=== PATIENT | male | born 1965 | race Caucasian/White ===

== ENCOUNTER 2019-11-21 08:51 | Day surgery (SDC) | payer BC, SELFPAY ==
[2019-11-15 10:38] VITALS: BMI 26.4
--- NOTE | 2019-11-20 15:38 | HO.ANESPROP2 ---
Documented by User: Janelle Louis 11/20/19 15:40 HPI - Anesthesia Eval Consult details Narrative: 54yo M for Colonoscopy PMFSH Past Medical History Medical History BPH (benign prostatic hyperplasia) Hx of colonic polyps Surgical History Surgical History History of hand surgery Hx of colonoscopy Hx of lumbar discectomy Hx of right knee surgery Social History Social History Smoking Status: Never smoker Second Hand Smoke Exposure: No Use of substances other than those prescribed or required for medical reasons: No Advance Directives: No Advance Directives Information Provided: No Meds Allergies Allergy/AdvReac Type Severity Reaction Status Date / Time No Known Allergies Allergy Verified 11/15/19 10:34 Home Medications Medication Instructions Recorded Confirmed Type tamsulosin 0.4 mg PO BEDTIME 11/15/19 11/15/19 History Viagra 11/21/19 History Exam Exam Date and Time: November 20, 2019 1538 Height,Weight and Vital Signs: Height 6 ft Weight 88.451 kg Pertinent Lab Results Pertinent Lab Results: Laboratory Tests 09/01/19 09/01/19 07:18 07:18 WBC 6.1 Hgb 13.9 L Hct 42.5 Plt Count 233 Sodium 142 Potassium 4.1 Chloride 105 Bicarbonate 29 BUN 11 Creatinine 1.01 Assessment and Plan Assessment Anesthesia Assessment: Chart Reviewed Documented by User: Heike Beal 11/21/19 09:41 PMFSH Past Medical History Medical History BPH (benign prostatic hyperplasia) Hx of colonic polyps Surgical History Surgical History History of hand surgery Hx of colonoscopy Hx of lumbar discectomy Hx of right knee surgery Social History Social History Smoking Status: Never smoker Second Hand Smoke Exposure: No Use of substances other than those prescribed or required for medical reasons: No Advance Directives: No Advance Directives Information Provided: No Meds Allergies Allergy/AdvReac Type Severity Reaction Status Date / Time No Known Allergies Allergy Verified 11/15/19 10:34 Home Medications Medication Instructions Recorded Confirmed Type tamsulosin 0.4 mg PO BEDTIME 11/15/19 11/15/19 History Viagra 11/21/19 History Exam Height,Weight and Vital Signs: Vital Signs Temperature 98.7 F 11/21/19 09:18 Pulse Rate 60 11/21/19 09:18 Respiratory Rate 16 11/21/19 09:18 Blood Pressure 116/61 11/21/19 09:18 Pulse Oximetry 98 11/21/19 09:18 Temperature 98.7 F 11/21/19 09:18 Pulse Rate 60 11/21/19 09:18 Respiratory Rate 16 11/21/19 09:18 Blood Pressure 116/61 11/21/19 09:18 Pulse Oximetry 98 11/21/19 09:18 Airway Mallampati Class: I TM Dist: >3cm Neck ROM: Full Loose/Missing/Broken Teeth: No Heart: RRR Lungs: CTA Assessment and Plan Assessment Anesthesia Assessment: Anesthesia Plan Discussed and Consent Obtained Final Anesthetic Review NPO: Yes ASA Class: II Final Preanesthetic Review: Meds & Allergies Reviewed, Consent Obtained/Reviewed, Med/Surg/Anes Hx Reviewed and Anes Risks/Benef Reviewed Patient Risk: Low Procedure Risk: Low Anesthetic Plan Anesthetic Plan: MAC: Disposition: Standard PACU Documented by User: Nirali Wells 11/21/19 10:59 PMFSH Past Medical History Medical History BPH (benign prostatic hyperplasia) Hx of colonic polyps Surgical History Surgical History History of hand surgery Hx of colonoscopy Hx of lumbar discectomy Hx of right knee surgery Social History Social History Smoking Status: Never smoker Second Hand Smoke Exposure: No Use of substances other than those prescribed or required for medical reasons: No Advance Directives: No Advance Directives Information Provided: No Meds Allergies Allergy/AdvReac Type Severity Reaction Status Date / Time No Known Allergies Allergy Verified 11/15/19 10:34 Home Medications Medication Instructions Recorded Confirmed Type tamsulosin 0.4 mg PO BEDTIME 11/15/19 11/15/19 History Viagra 11/21/19 History Assessment and Plan Assessment Anesthesia Assessment: Anesthesia Plan Discussed, Consent Obtained and PAT Visit Final Anesthetic Review NPO: Yes ASA Class: II Final Preanesthetic Review: No Changes in Pt Med Stat, Meds & Allergies Reviewed, Consent Obtained/Reviewed and Med/Surg/Anes Hx Reviewed Patient Risk: Low Procedure Risk: Low Assessment/Block/Sedation in SS: Assess/Block/Sedation-SS Anesthetic Plan Anesthetic Plan: MAC: Disposition: Standard PACU
[2019-11-21 09:18] VITALS: BP 116/61; PULSE 60; RESP 16; TEMP 37.1; O2SAT 98
[2019-11-21] MEDS: Lactated Ringers 1,000 ML 100 ML IVCONT (09:28)
--- NOTE | 2019-11-21 10:53 | MHC.SHP ---
Pre-Procedural Eval Section A The patient is an INPATIENT: No The History & Physical has been completed within 30 days and I have reviewed it.: No Section B Chief Complaint: Colon cancer screening Details of Present Illness: Hx of colon polyps Relevant Family History (Specify if Yes): No Present Medications: see Short Stay Collaborative assessment Medical History: Significant History (BPH) Allergies: Allergies Allergy/AdvReac Type Severity Reaction Status Date / Time No Known Allergies Allergy Verified 11/15/19 10:34 Review of Systems Sugical H&P ROS: Negative: Constitution, Cardiovascular, Respiratory, Psychiatric, Gastrointestinal and Musculoskeletal Exam Surgical H&P Exam: Normal: HEENT, Normal: Heart, Normal: Lungs, Normal: Extremities, Normal: Abdomen and Normal: Neurological Plan Diagnosis/Plan: Unchanged Patient has been examined and remains a candidate for the planned procedure
--- NOTE | 2019-11-21 10:56 | PM.OP ---
Brief Operative Note Date of procedure: 11/21/19 Pre-op diagnosis: Colon cancer screening, Hx of colon polyps Post-op diagnosis: other (Colon polyps, diverticulosis, hemorrhoids) Procedure: COLONOSCOPY PROCEDURE NOTE Consent: Indications for the procedure and potential complications of bleeding, perforation, reaction to medications and missed diagnosis were discussed with the patient and informed consent was obtained. Instrument: Olympus PCF H 190 L variable stiffness pediatric colonoscope Monitoring: Vital signs and clinical assessment, intermittent blood pressure monitoring, continuous EKG monitoring, Pulse oximetry and Carbon Dioxide monitoring were done throughout the procedure. Colon withdrawl time was 16 minutes. Procedure: The patient was placed in the left lateral decubitis position and pre-procedure medications were administered. After a digital rectal examination of the ano-rectum, the video colonoscope was inserted into the rectum and advanced through the colon to the cecum. The colonoscope was slowly withdrawn in a retrograde panoramic fashion and the colon mucosa was carefully examined including a retroflexed view of the rectum. Findings and interventions are described below. Procedure Difficulty: Without difficulty Findings: Terminal Ileum: Distal 5 cms was examined and appeared normal. Cecum: Normal Ascending Colon: Normal Transverse Colon: Normal Descending Colon: Moderate diverticulosis Sigmoid Colon: Two 3-4 mm diminutive appearing polyps removed with a cold bx. Moderate diverticulosis Rectum: Normal Ano-rectum: Moderate internal hemorrhoids Colon preparation: Excellent Impression and Post Procedure Diagnosis: Colonoscopy Findings: Two diminutive polyps removed Moderate diverticulosis seen in the left colon Moderate hemorrhoids on retroflexed exam. Plan: Await pathology results Patient has an appointment on 11/30/19 in the GI Clinic with AMELIA Trammell. Repeat Colonoscopy interval based on path results - in 5 years if polyps are adenomatous and due to a hx of colon polyps. Above findings were reviewed with the patient and colon polyps and diverticulosis handouts were given in the discharge area Anesthesia: MAC (Dr Ovalles) Surgeon: Corry Lynn Pathology: other (A. SC polyps x 2) Condition: stable Disposition: PACU
[2019-11-21 11:57] VITALS: BP 107/59; PULSE 59; RESP 16; TEMP 36.4; O2SAT 98
[2019-11-21 12:12] VITALS: BP 129/66; PULSE 62; RESP 16; O2SAT 97
== END 2019-11-21 12:55 | disposition home or self-care (01) ==
PROVIDERS: PCP Internal Medicine; Visit Provider Internal Medicine Gastroenterology
PROC: 0DJD8ZZ Inspection of Lower Intestinal Tract, Via Natural or Artificial Opening Endoscopic (ICD-10-PCS; CPT 45378; principal; 2019-11-21 10:20)
DX: Z12.11 Encounter for screening for malignant neoplasm of colon (principal); Z86.010 Personal history of colon polyps; K63.5 Polyp of colon; K57.30 Diverticulosis of large intestine without perforation or abscess without bleeding; K64.8 Other hemorrhoids; N40.0 Benign prostatic hyperplasia without lower urinary tract symptoms
CPT/HCPCS: 45380; 88305

== ENCOUNTER 2021-10-09 06:31 | Outpatient (REF) | payer BC, SELFPAY ==
--- NOTE | ~2021-10-09 | XR_ITS ---
EXAMINATION: XR CHEST CLINICAL INFORMATION: Dyspnea COMPARISON: None TECHNIQUE: 2 views of the chest were obtained. FINDINGS: Very slight left basilar atelectasis. Biapical pleural parenchymal scarring. No pneumothorax. Trachea is midline. Cardiomediastinal silhouette is not enlarged. No large pleural effusion. Degenerative changes of the thoracolumbar spine. Soft tissues are unremarkable. XR/XR chest 2V IMPRESSION: 1. Very slight left basilar atelectasis. 2. Biapical pleural parenchymal scarring.
--- NOTE | ~2021-10-09 | XR_ITS ---
EXAMINATION: XR CERVICAL SPINE CLINICAL INFORMATION: Torticollis. COMPARISON: None TECHNIQUE: Frontal, odontoid, bilateral oblique and lateral views of the cervical spine were obtained. FINDINGS: There is bony demineralization. Vertebral body heights and alignment are normal. There is moderate disc space narrowing and spondylosis is seen at C5-C6 and C6-C7. The remaining disc spaces are relatively well-maintained. No acute fracture or spondylolisthesis is seen. The posterior elements are intact. There is mild bilateral neural foraminal narrowing at C5-C6. The dens is intact. There is no prevertebral soft tissue swelling or gas. XR/XR cervical spine 4V IMPRESSION: 1. There is moderate degenerative disc disease and spondylosis at C5-C6 and C6-C7. 2. At C5-C6, there is mild bilateral foraminal narrowing.
[2021-10-09 11:21] LABS: MANUAL DIFF FLAG NO
[2021-10-09 11:34] LABS: Basophils Percent Auto 0.5 % (0-2); Eosinophils Absolute Auto 0.3 X10*3/uL (0.0-0.4); Eosinophils Percent Auto 5.2 % (0-4); Hematocrit 45.2 % (42.0-52.0); Imm Gran Abs Auto 0.01 X10*3/uL (0.00-0.03); Imm Gran Pct Auto 0.2 % (0.0-0.4); Lymphocytes Absolute Auto 1.5 X10*3/uL (1.2-4.9); Lymphocytes Percent Auto 25.5 % (20-40); Mean Corpuscular HGB Conc 33.2 g/dl (31.0-36.0); Mean Corpuscular Hemoglobin 31.3 pg (27.0-33.0); Mean Corpuscular Volume 94.2 fL (80.0-98.0); Mean Platelet Volume 9.5 fL (9.4-12.4); Monocytes Absolute Auto 0.5 X10*3/uL (0.1-1.2); Monocytes Percent Auto 8.5 % (2-11); Neutrophils Absolute Auto 3.5 x10*3/uL (2.0-8.3); Neutrophils Percent Auto 60.1 % (45-73); Platelet Count 264 X10*3/uL (160-400); Red Cell Distribution Width 12.9 % (11.0-16.0); White Blood Count 5.8 X10*3/uL (4.8-10.8)
[2021-10-09 11:57] LABS: Alanine Aminotransferase 24 U/L (0-40); Alkaline Phosphatase 54 U/L (39-117); Anion Gap 12 (12-20); Aspartate Amino Transferase 21 U/L (5-37); Bilirubin Total 0.7 mg/dL (0.0-1.0); Blood Urea Nitrogen 10 mg/dL (9-16); Calcium 9.1 mg/dL (8.4-10.2); Carbon Dioxide 28 mmol/L (22-29); Chloride 104 mmol/L (96-108); Cholesterol 225 mg/dL; Estimated Glomerular Filt Rate > 60; Glucose Fasting 90 mg/dL (60-99); HDL Cholesterol 58 mg/dL; LDL Cholesterol Calculated 143 mg/dl; Potassium 4.2 mmol/L (3.3-5.1); Sodium 140 mmol/L (135-145); Triglycerides 122 mg/dL
[2021-10-09 12:19] LABS: PSA,Total (Free>4and<10) 2.26 ng/mL (0.00-4.00); TSH reflex Free T4 2.26 uIU/mL (0.32-4.0); Vitamin D 25-OH Total 34.2 ng/mL (>30)
[2021-10-09 12:26] LABS: Folate 10.2 ng/mL (> or = 4.0); Vitamin B12 330 pg/mL (200-900)
[2021-10-10 21:16] LABS: Lyme Abs Screen <0.90 index
== END 2021-10-09 06:32 | disposition home or self-care (01) ==
LOC: HO.HMGCLDS 06:31
PROVIDERS: PCP Internal Medicine; Visit Provider Internal Medicine
DX: Z00.01 Encounter for general adult medical examination with abnormal findings (principal); M25.50 Pain in unspecified joint; M43.6 Torticollis; M47.812 Spondylosis without myelopathy or radiculopathy, cervical region; R35.1 Nocturia; R53.82 Chronic fatigue, unspecified; U09.9 Post COVID-19 condition, unspecified; R06.09 Other forms of dyspnea
CPT/HCPCS: 36415; 71046; 72050; 80053; 80061; 82306; 82607; 82746; 84153; 84443; 85025; 86617; 86618

== ENCOUNTER 2021-10-31 09:43 | Outpatient (REF) | payer BC, SELFPAY ==
[2021-10-31 10:09] LABS: MANUAL DIFF FLAG NO
[2021-10-31 10:28] LABS: Basophils Percent Auto 0.5 % (0-2); Eosinophils Absolute Auto 0.2 X10*3/uL (0.0-0.4); Eosinophils Percent Auto 2.6 % (0-4); Hematocrit 45.3 % (42.0-52.0); Hemoglobin 14.9 g/dl (14.0-18.0); Imm Gran Abs Auto 0.02 X10*3/uL (0.00-0.03); Imm Gran Pct Auto 0.3 % (0.0-0.4); Lymphocytes Absolute Auto 1.5 X10*3/uL (1.2-4.9); Lymphocytes Percent Auto 23.1 % (20-40); Mean Corpuscular HGB Conc 32.9 g/dl (31.0-36.0); Mean Corpuscular Volume 94.4 fL (80.0-98.0); Monocytes Absolute Auto 0.7 X10*3/uL (0.1-1.2); Neutrophils Absolute Auto 4.2 x10*3/uL (2.0-8.3); Neutrophils Percent Auto 63.5 % (45-73); Platelet Count 258 X10*3/uL (160-400); Red Cell Distribution Width 12.8 % (11.0-16.0); White Blood Count 6.6 X10*3/uL (4.8-10.8)
== END 2021-10-31 09:44 | disposition home or self-care (01) ==
LOC: HO.LAB 09:43
PROVIDERS: PCP Internal Medicine; Visit Provider Internal Medicine Pulmonary Disease
DX: Z91.09 Other allergy status, other than to drugs and biological substances (principal)
CPT/HCPCS: 36415; 82785; 85025; 86003

== ENCOUNTER 2021-11-07 07:46 | Outpatient (REF) | payer BC, SELFPAY ==
--- NOTE | 2021-11-07 17:37 | PFT_ITS ---
INDICATION: Post COVID. SPIROMETRY: FEV1 to FVC of 82% with an FEV1 of 3.96 L, which is 98% predicted and an FVC of 4.84 L, which is 92% predicted. No significant response to bronchodilators noted. Maximum voluntary ventilation 91% predicted. LUNG VOLUMES: Total lung capacity 98% predicted with an expiratory reserve volume of 49% predicted. DIFFUSION CAPACITY: DLCO of 78% predicted. COMPARISONS: None. INTERPRETATION: No obstructive nor restrictive ventilatory defects identified. No significant response to bronchodilators noted. Normal maximum voluntary ventilation. The patient has normal lung volumes except for slight decrease in the expiratory reserve volume, likely secondary to an elevated BMI. The patient does have a mild isolated diffusion impairment. It does correct to normal when correcting for the alveolar volume. If asthma is in the differential, a methacholine challenge may be helpful in assessing for hyper-reactive airways. Otherwise, clinical correlation warranted. El Dumont MD MR/MODL / [id number]
== END 2021-11-07 07:47 | disposition home or self-care (01) ==
LOC: HO.RESP 07:46
PROVIDERS: PCP Internal Medicine; Visit Provider Internal Medicine Pulmonary Disease
DX: R06.09 Other forms of dyspnea (principal)
CPT/HCPCS: 94060; 94727; 94729

== ENCOUNTER 2021-11-13 07:21 | Outpatient (REF) | payer BC, SELFPAY ==
--- NOTE | ~2021-11-13 | CT_ITS ---
EXAMINATION: CT CHEST WITHOUT CONTRAST CLINICAL INFORMATION: interstitial pulmonary disease. COMPARISON: None TECHNIQUE: Multidetector volumetric CT imaging of the chest was done. Axial MIP volume rendering provided. Sagittal and coronal reformatted images were obtained. This CT examination was performed using dose optimization techniques as appropriate, variously including the following: *Automated exposure control *Adjustment of mA and/or kV according to patient size (this includes techniques or standardized protocols for targeted exams where dose is matched to indication/reason for exam; i.e. extremities or head) *Use of iterative reconstruction technique DLP: 248 mGy-cm FINDINGS: SHIELD CLEANER: Well-inflated lungs. LUNGS: There is a 1 mm nodule left upper lobe axial image 87/7, punctate tumor nodule right lower lobe along the major fissures likely small lymph node or vascular structure. The lungs are well-expanded without acute pneumonic consolidation. There is no interstitial thickening, bronchiectasis or groundglass density. Mild atelectatic changes are seen in the lingula and anterior segment left lower lobe. MEDIASTINUM: The thyroid lobes are symmetrical and normal. The central trachea and the bronchi widely patent. Heart size and the great vessels are normal caliber. There are small shotty lymph nodes in the mediastinum. No pericardial effusion seen. CORONARY ARTERY CALCIFICATION: None visualized on this study. PLEURA: There is no pleural effusion. No pleural mass. There is minimal bilateral apical pleural thickening. AXILLA: No lymphadenopathy. UPPER ABDOMEN: Small peripheral hypodense 2 cm lesion segment 6 and a small hypodense lesion segment 7) with a right hemidiaphragm. Otherwise rest of the visualized liver, spleen, pancreas and bilateral adrenal glands unremarkable OSSEOUS STRUCTURES: No lytic or sclerotic process seen. CT/CT chest wo IV con IMPRESSION: 2 insignificant small pulmonary nodules. The lungs are otherwise clear without any interstitial lung disease, groundglass opacity or bronchiectasis. Fleischner guidelines were followed.
== END 2021-11-13 07:22 | disposition home or self-care (01) ==
LOC: HO.CT 07:21
PROVIDERS: PCP Internal Medicine; Visit Provider Internal Medicine Pulmonary Disease
DX: J84.9 Interstitial pulmonary disease, unspecified (principal); R06.09 Other forms of dyspnea; U09.9 Post COVID-19 condition, unspecified
CPT/HCPCS: 71250

== ENCOUNTER 2023-04-02 08:13 | Outpatient (AMB) | payer OTHER, SELFPAY ==
--- NOTE | 2023-04-02 08:28 | MHC.OFFWIV ---
Intake Vital Signs 04/02/23 08:29 Height 6 ft Weight 210 lb BMI 28.5 BP 110/70 Blood Pressure Location Rt brachial Position Sitting Pulse 87 Temp 100.3 F Temp Source Oral Pulse Oximetry (%) 93 Oxygen Delivery Method Room Air Intake Visit Reasons: EP fever conges dry mouth tight chest [id number] Patient Tobacco Use Status: Never used Tobacco Allergies No Known Allergies Allergy (Verified 04/02/23 08:29) Do you need a note to return to daycare/school/sports/work: No HPI HPI Comments History of Present Illness Details This is a 58-year-old male who presented to the walk-in clinic complaining of viral URI symptoms x3 days. Patient reports his has been sick with similar symptoms for the past 1 week. He started to develop a dry cough, nasal/sinus congestion, rhinorrhea, low-grade fever/chills, myalgias approximately 2 days ago. He denies any shortness of breath. He denies any sputum production with his cough. Patient reports associated malaise/fatigue as well as decreased appetite due to his symptoms. He denies any abdominal pain or nausea/vomiting/diarrhea. [facility] Medical History (Updated 10/31/21 @ 09:32 by Stoney Jiménez MD) Vaccination declined by patient Post-COVID chronic dyspnea Polyarthralgia Stiffness of cervical spine Nocturia Lumbar herniated disc Degenerative arthritis of cervical spine Hx of colonic polyps BPH (benign prostatic hyperplasia) Surgical History History of hand surgery Hx of right knee surgery Hx of lumbar discectomy Hx of colonoscopy Family History (Updated 10/08/21 @ 10:06 by Nirmala Rueda MD) Paternal Uncle Prostate cancer Lung cancer Maternal Uncle Prostate cancer Mother Acquired hypothyroidism Social History Housing: Apartment Patient Tobacco Use Status: Never used Tobacco e-Cigarette/Vaping Use: Never Used Second Hand Smoke Exposure: No service: No Current occupational status: employed Cognitive needs: No Hearing needs: No Vision needs: Yes Review of Systems Const All systems reviewed & are unremarkable except as noted in HPI and below Reports no additional complaints Eyes Reports no additional complaints ENT Reports no additional complaints Card Reports no additional complaints Resp Reports no additional complaints GI Reports no additional complaints Reports no additional complaints Musc Reports no additional complaints Skin/Breast Reports system reviewed and no additional complaints, except as documented Neuro Reports no additional complaints Psych Reports no additional complaints Endo Reports no additional complaints Rui/Lymph Reports no additional complaints Aller/Immun Reports no additional complaints Physical Exam Vital Signs: Last Vital Signs Temp 100.3 F 04/02/23 08:29 Pulse 87 04/02/23 08:29 BP 110/70 04/02/23 08:29 Pulse Ox 93 04/02/23 08:29 Oxygen Delivery Method Room Air 04/02/23 08:29 BMI result Body Mass Index 28.5 Const Other: Vital signs reviewed. Constitutional: Non-toxic appearing. No acute distress. Well-developed and well-nourished. HEENT: Normocephalic and atraumatic. Tympanic membranes without erythema, edema, or bulging bilaterally. External auditory canals without erythema or edema bilaterally. Moist mucous membranes. Skin: Warm and dry. No rashes or lesions noted. Neck: Full and painless range of motion. No cervical lymphadenopathy. Cardio: Regular rate and rhythm. No murmurs, gallops, or rubs. No lower extremity edema. No JVD. Pulmonary: No respiratory distress. No accessory muscle usage. Clear to auscultation bilaterally without wheezing, crackles, or rhonchi. Gastrointestinal: Soft, nontender, and nondistended in all 4 quadrants. Musculoskeletal: Normal range of motion in joints throughout the body. No deformity or other signs of injury. Neuro: Alert and oriented x4. Cranial nerves 2-12 grossly intact. No focal deficits appreciated. Psych: Normal mood and affect. Assessment & Plan Assessment & Plan (1) Viral URI with cough: Code(s): J06.9 - Acute upper respiratory infection, unspecified Plan: This is a 58-year-old male who presented to the walk-in clinic complaining of viral URI symptoms x3 days. History and physical most consistent with an acute viral upper respiratory tract infection; however, given fever and cough, I have ordered a chest x-ray to rule out pneumonia. COVID/flu/RSV swab was sent. Recommended symptomatic management including rest, increased fluids, advil/tylenol for pain/fever, over the counter throat lozenges/decongestants and cough medicines such as guaifenesin, fluticasone/normal saline nasal sprays, and humidification. Patient advised to follow up here or go to the emergency room for worsening/persistent symptoms. Patient verbalized understanding and is agreeable with the plan. Orders: Orders SARS-CoV2/FLU/RSV Today R09.89 - Other specified symptoms and signs involving the circulatory and respiratory systems XR chest 2V Today Coding Level of Care Code Est Pt Level 3 (87011) Diagnoses Viral URI with cough J06.9
[2023-04-02 08:29] VITALS: BP 110/70; PULSE 87; TEMP 37.9; O2SAT 93; BMI 28.5
== END 2023-04-02 08:38 | disposition home or self-care (01) ==
PROVIDERS: PCP Internal Medicine; Visit Provider Physician Assistant Medical
DX: J06.9 Acute upper respiratory infection, unspecified (principal)
CPT/HCPCS: 99213

== ENCOUNTER 2023-04-02 08:33 | Outpatient (REF) | payer OTHER, SELFPAY ==
--- NOTE | ~2023-04-02 | XR_ITS ---
EXAMINATION: XR CHEST CLINICAL INFORMATION: Cough COMPARISON: 10/09/2021 TECHNIQUE: 2 views of the chest were obtained. FINDINGS: Heart, mediastinum and pulmonary vascularity within normal limits. Stable mild left base atelectasis/scarring. No consolidations or effusions. Degenerative changes again noted. XR/XR chest 2V IMPRESSION: Stable chest, no acute cardiopulmonary disease.
[2023-04-02 17:57] LABS: Influenza A PCR POSITIVE (Negative); Influenza B PCR NEGATIVE (Negative); Resp Syncy Virus RNA Qual PCR NEGATIVE (Negative); SARS COV2 PCR INHOUSE NEGATIVE (Negative)
== END 2023-04-02 08:34 | disposition home or self-care (01) ==
LOC: HO.HMGCX 08:33
PROVIDERS: PCP Internal Medicine; Visit Provider Physician Assistant Medical
DX: Z11.52 Encounter for screening for COVID-19 (principal); Z20.822 Contact with and (suspected) exposure to COVID-19; R09.89 Other specified symptoms and signs involving the circulatory and respiratory systems
CPT/HCPCS: 0241U; 71046

== ENCOUNTER 2023-04-14 13:16 | Outpatient (AMB) | payer OTHER, SELFPAY ==
--- NOTE | 2023-04-14 14:12 | MHC.PC.OV ---
Vital Signs 04/14/23 14:25 Height 6 ft Weight 224 lb BMI 30.4 BP 130/90 H Blood Pressure Location Lt brachial Position Sitting Pulse 73 Pulse Source Pulse Oximeter Pulse Oximetry (%) 97 Oxygen Delivery Method Room Air Intake Visit Reasons: Annual PE Intake Note: Pt is here today for his PE Allergies No Known Allergies Allergy (Verified 04/14/23 17:50) Medication List - Last Reconciled 04/14/23 by Nirmala Rueda MD No Known Home Meds Tobacco use date assessed: 04/14/23 Dental Screening Dental Screen Date: 04/14/23 Did you have a dental visit in the last 12 months?: No Was dental information given to patient?: Patient has dentist HPI Annual PE HPI Details 58-year-old male here today for physical exam. He has no specific complaints at present time, does not take any regular medications. Patient states that he has been diagnosed to have benign prostatic hyperplasia when he was in [place]. Denies any urinary symptoms. Does not want to get any vaccination. Has had a screening colonoscopy done by Dr. Lynn in 2020 with hyperplastic polyp removed peer. Patient states that he recently noticed as superficial lump on right scrotal sac, nontender to palpation, no discharge. [facility] Medical History (Updated 04/14/23 @ 18:08 by Nirmala Rueda MD) Benign prostatic hyperplasia with weak urinary stream Family history of prostate cancer Vaccination declined by patient Post-COVID chronic dyspnea Polyarthralgia Lumbar herniated disc Degenerative arthritis of cervical spine Hx of colonic polyps BPH (benign prostatic hyperplasia) Surgical History (Updated 04/14/23 @ 18:08 by Nirmala Rueda MD) History of hand surgery Hx of right knee surgery Hx of lumbar discectomy Hx of colonoscopy Family History Paternal Uncle Prostate cancer Lung cancer Maternal Uncle Prostate cancer Mother Acquired hypothyroidism Social History Housing: Apartment Patient Tobacco Use Status: Never used Tobacco e-Cigarette/Vaping Use: Never Used Second Hand Smoke Exposure: No service: No Current occupational status: employed Cognitive needs: No Hearing needs: No Vision needs: Yes Questionnaire PHQ-9 Over the last 2 weeks, how often have you been bothered by any of the following problems? 56888 - PHQ-9 Billing: Patient declined-do not bill Source: Developed by Drs. Phoenix Perdue, Cleve Mccartney and colleagues, with an educational sanjuana from [employer]. Thrive Questionnaire Date Thrive assessed: 04/14/23 I am a: Patient What is your living situation today?: I have a steady place to live Within the past 12 months, did the food you bought not last and you didn't have the money to get more?: Never true Within the past 12 months, did you worry whether your food would run out before you got money to buy more?: Never true Do you have trouble paying for medicines?: No Do you have trouble getting transportation to medical appointments?: No Do you have trouble paying your heating and electricity bill?: No Do you have trouble taking care of your child, family member or friend?: No Do you have trouble with day-to-day activities such as bathing, preparing meals, shopping, managing finances, etc.?: No Are you currently unemployed and looking for a job?: No Are you interested in more education?: No THRIVE Score: 0 AUDIT C Alcohol Use Questionnaire (AUDIT-C) 1. How often do you have a drink containing alcohol?: Never Total Score: 0 KLEVER-7 AMB Questionnaire KLEVER-7 Date KLEVER - 7 assessed: 04/14/23 Feeling nervous, anxious, or on edge: 1 = Several days Not being able to stop or control worryin = Several days Worrying too much about different things: 1 = Several days Trouble relaxin = Not at all Being so restless that it is hard to sit still: 0 = Not at all Becoming easily annoyed or irritable: 1 = Several days Feeling afraid as if something awful might happen: 0 = Not at all Total KLEVER-7 score (0-4 normal; 5-9 mild; 10-14 moderate; 15-21 severe): 4 Source: Developed by Drs. Phoenix Perdue, Cleve Mccartney and colleagues, with an educational sanjuana from [employer]. KLEVER-7 Assessment Billing KLEVER-7 Assessment Tool: KLEVER-7 Assessment 81422 Review of Systems Const Reports no additional complaints Eyes Reports no additional complaints ENT Reports no additional complaints Card Reports no additional complaints Resp Reports no additional complaints GI Reports no additional complaints Reports no additional complaints Musc Reports no additional complaints Skin/Breast Reports system reviewed and no additional complaints, except as documented Neuro Reports no additional complaints Psych Reports no additional complaints Endo Reports no additional complaints Rui/Lymph Reports no additional complaints Aller/Immun Reports no additional complaints Physical exam (Primary Care) Vital Signs: Last Vital Signs Pulse 73 04/14/23 14:25 BP 130/90 H 04/14/23 14:25 Pulse Ox 97 04/14/23 14:25 Oxygen Delivery Method Room Air 04/14/23 14:25 BMI result Body Mass Index 30.4 Tobacco/Smoking Status: Tobacco use Status Tobacco use date assessed 04/14/23 04/14/23 14:14 Patient Tobacco Use Status Never used Tobacco 04/14/23 14:14 e-Cigarette/Vaping Use Never Used 04/14/23 14:14 Thrive Assessment: Date of Thrive Assessment Date Thrive assessed 04/14/23 04/14/23 14:29 Const Other: Alert oriented x3, no acute distress noted ambulatory normal gait Orientation/consciousness: patient oriented x3 HENMT Head: Yes normocephalic and Yes atraumatic Ears: external ears normal, TM's normal bilaterally and EAC's normal General nose exam: Normal external nose present and No nasal discharge present Mouth: Normal oral and palatal mucosa present and moist mucous membranes Eyes General: appearance normal, both eyes and all related structures Neck Neck: Yes no lymphadenopathy Thyroid: Thyroid normal Chest Chest palpation & inspection: normal inspection of the chest and normal palpation of entire chest wall Resp Auscultation: clear to auscultation bilaterally Cardio Other: S1-S2 present regular rate and rhythm GI Palpation (GI): Soft to palpation, nontender, no guarding and no masses Auscultation: normal bowel sounds Other: Superficial nodular lesion , nontender to palpation, measuring approximately 0.5 cm on right scrotal area no scrotal or testicular mass palpated Male General Exam: Yes normal external exam and No inguinal lymphadenopathy Penis: normal penis and circumcised Meatus: meatus normal Scrotum: testes descended bilaterally Testes: Testes normal Back/Spine/Pelvis Other: Healed surgical scar over lumbar area Back: No back tenderness Cervical Spine: pain with cervical ROM Skin General skin exam: no rashes or lesions noted Neuro General: patient oriented x3, gait normal, moves all extremities, Normal light touch and pain sensation, no focal motor deficits and CN's II-XI intact bilaterally Extrem General: Yes full ROM, Yes no joint enlargement, Yes no pedal edema, Yes no calf tenderness and Yes normal gait Psych Appearance: grossly normal and well kempt Mental Status: mental status grossly normal Speech and movement: Normal speech and movement present Affect: normal affect Attitude: cooperative Assessment and Plan Assessment & Plan (1) Annual visit for general adult medical examination with abnormal findings: Code(s): Z00.01 - Encounter for general adult medical examination with abnormal findings Plan: Will check appropriate labs. Recommended dental visit every 6 months and regular eye exams, at least every 2 years. Take adequate calcium in diet and vitamin-D 3 at 2000 IU per cap once a day, in addition to weight-bearing exercises to help maintain good muscle tone and weight control. Patient does not want to get any vaccines. Up-to-date with his screening colon[place] [address] Lynn with hyperplastic polyp removed, repeat again in (2) Family history of prostate cancer: Code(s): Z80.42 - Family history of malignant neoplasm of prostate Plan: Ordered total and free PSA (3) Benign prostatic hyperplasia with weak urinary stream: Code(s): N40.1 - Benign prostatic hyperplasia with lower urinary tract symptoms; R39.12 - Poor urinary stream Plan: Ordered total and free PSA, urology consult obtain (4) Lesion of skin of scrotum: Code(s): N50.9 - Disorder of male genital organs, unspecified Plan: Urology consult obtain Orders: Orders PSA,Total (Free>4and<10) Today N40.1 - Benign prostatic hyperplasia with lower urinary tract symptoms, R39.12 - Poor urinary stream, Z00.01 - Encounter for general adult medical examination with abnormal findings, Z80.42 - Family history of malignant neoplasm of prostate Lipid Panel Today N40.1 - Benign prostatic hyperplasia with lower urinary tract symptoms, R39.12 - Poor urinary stream, Z00.01 - Encounter for general adult medical examination with abnormal findings, Z80.42 - Family history of malignant neoplasm of prostate Basic Metabolic Panel Fasting Today N40.1 - Benign prostatic hyperplasia with lower urinary tract symptoms, R39.12 - Poor urinary stream, Z00.01 - Encounter for general adult medical examination with abnormal findings, Z80.42 - Family history of malignant neoplasm of prostate Vitamin D 25-OH Total Today N40.1 - Benign prostatic hyperplasia with lower urinary tract symptoms, R39.12 - Poor urinary stream, Z00.01 - Encounter for general adult medical examination with abnormal findings, Z80.42 - Family history of malignant neoplasm of prostate Referrals Urology Referral N40.1 - Benign prostatic hyperplasia with lower urinary tract symptoms, N50.9 - Disorder of male genital organs, unspecified, R39.12 - Poor urinary stream, Z80.42 - Family history of malignant neoplasm of prostate Coding Level of Care Code Est Pt Prev Care 40-64y(67168) Diagnoses Annual visit for general adult medical examination with abnormal findings Z00.01 Family history of prostate cancer Z80.42 Benign prostatic hyperplasia with weak urinary stream N40.1; R39.12 Lesion of skin of scrotum N50.9 Additional Codes KLEVER-7 Assessment Billing - KLEVER-7 Assessment Tool: KLEVER-7 Assessment [id number] ([id number])
[2023-04-14 14:25] VITALS: BP 130/90; PULSE 73; O2SAT 97; BMI 30.4
== END 2023-04-14 15:43 | disposition home or self-care (01) ==
PROVIDERS: PCP Internal Medicine; Visit Provider Internal Medicine
DX: Z00.00 Encounter for general adult medical examination without abnormal findings (principal); Z80.42 Family history of malignant neoplasm of prostate; N40.1 Benign prostatic hyperplasia with lower urinary tract symptoms; R39.12 Poor urinary stream; N50.9 Disorder of male genital organs, unspecified
CPT/HCPCS: 99396

== ENCOUNTER 2023-04-14 14:53 | Outpatient (REF) | payer OTHER, SELFPAY ==
[2023-04-14 18:06] LABS: Anion Gap 11 (12-20); Blood Urea Nitrogen 9 mg/dL (9-16); Calcium 9.8 mg/dL (8.4-10.2); Carbon Dioxide 32 mmol/L (22-29); Chloride 104 mmol/L (96-108); Cholesterol 192 mg/dL (<200); Estimated Glomerular Filt Rate > 60; Glucose Fasting 85 mg/dL (60-99); HDL Cholesterol 52 mg/dL (>40); LDL Cholesterol Calculated 122 mg/dL (<100); Potassium 4.3 mmol/L (3.3-5.1); Sodium 143 mmol/L (135-145); Triglycerides 94 mg/dL (<150); Vitamin D 25-OH Total 28.8 ng/mL (>30)
[2023-04-14 18:11] LABS: PSA,Total (Free>4and<10) 3.12 ng/mL (0.00-4.00)
== END 2023-04-14 14:54 | disposition home or self-care (01) ==
LOC: HO.HMGCLDS 14:53
PROVIDERS: PCP Internal Medicine; Visit Provider Internal Medicine
DX: Z00.01 Encounter for general adult medical examination with abnormal findings (principal); Z12.5 Encounter for screening for malignant neoplasm of prostate; Z13.6 Encounter for screening for cardiovascular disorders; N40.1 Benign prostatic hyperplasia with lower urinary tract symptoms; R39.12 Poor urinary stream; Z80.42 Family history of malignant neoplasm of prostate
CPT/HCPCS: 36415; 80048; 80061; 82306; 84153

== ENCOUNTER 2023-06-21 12:55 | Outpatient (AMB) | payer OTHER, SELFPAY ==
--- NOTE | 2023-06-21 13:03 | A.OFFVIS_ITS ---
Intake Visit Reasons: BPH/family hx of prostate cancer Intake Note: New Patient presents for initial visit for BPH and family history of prostate cancer Urology Medications: none Blood Thinner: none Allergies No Known Allergies Allergy (Verified 06/21/23 20:45) Medication List - Last Reconciled 06/21/23 by MAURICIO Shah tamsulosin 0.4 mg PO BEDTIME 30 days HPI Comments Details: Ruperto is a very pleasant 58-year-old male patient of Dr. Rueda. He has a past medical history of BPH with weak urinary stream, family history of prostate cancer, polyarthralgia, lumbar herniated disc, degenerative arthritis of cervical spine, and history of colonic polyps. He presents to the office today as a new patient for ongoing lower urinary tract symptoms. In discussion with the patient today he reports weak urinary stream, nocturia, urinary urgency and frequency have been present for quite some time. He reports noting symptoms started over 10 years ago however feels they are progressively worsening. He does report a history of sleep apnea however has since stopped using his CPAP machine as he finds it difficult. Discussed at length correlation of sleep apnea with nocturia. He otherwise denies urinary urgency, urinary frequency, incontinence, hematuria, dysuria, foul smelling urine, flank pain, fever, and or chills. In review of patient's chart it appears a PSA was ordered and performed. 04/10 3.1. He does report having a family history of prostate cancer. He reports maternal and paternal uncles had prostate cancer. He reports having had JAYLEN with PCP and no abnormalities were noted. Discussed redraw of PSA and obtaining retroperitoneal ultrasound for further assessment evaluation. Discussed potential near future sleep study. In office urinalysis results reviewed with the patient today. [facility] Medical History Benign prostatic hyperplasia with weak urinary stream Family history of prostate cancer Vaccination declined by patient Post-COVID chronic dyspnea Polyarthralgia Lumbar herniated disc Degenerative arthritis of cervical spine Hx of colonic polyps BPH (benign prostatic hyperplasia) Surgical History History of hand surgery Hx of right knee surgery Hx of lumbar discectomy Hx of colonoscopy Family History Paternal Uncle Prostate cancer Lung cancer Maternal Uncle Prostate cancer Mother Acquired hypothyroidism Social History Housing: Apartment Patient Tobacco Use Status: Never used Tobacco e-Cigarette/Vaping Use: Never Used Second Hand Smoke Exposure: No service: No Current occupational status: employed Cognitive needs: No Hearing needs: No Vision needs: Yes Review of Systems Const Reports no additional complaints Eyes Reports no additional complaints ENT Reports no additional complaints Card Reports no additional complaints Resp Reports no additional complaints GI Reports as per HPI Reports as per HPI Musc Reports as per HPI Neuro Reports no additional complaints Psych Reports no additional complaints Endo Reports no additional complaints Rui/Lymph Reports no additional complaints Aller/Immun Reports no additional complaints Physical Exam Const General: cooperative, healthy appearing, comfortable, no acute distress, well developed, alert and awake Orientation/consciousness: patient oriented x3 Limitations: no limitations HEENT Head: Yes normal to inspection, Yes normocephalic and Yes atraumatic Ears: hearing grossly normal bilaterally Eyes General: appearance normal, both eyes and all related structures Neck Neck: Yes normal visual inspection and Yes trachea midline Chest Chest palpation & inspection: normal inspection of the chest Resp Effort & Inspection: normal respiratory effort and able to speak in complete sentences Cardio Rate: regular rate GI Inspection: Yes normal to inspection General: Yes no CVA tenderness Back/Spine/Pelvis Back: no CVA tenderness Skin General skin exam: no rashes or lesions noted Neuro General: patient oriented x3 Extrem General: Yes normal to inspection Psych Appearance: grossly normal and well kempt Mental Status: mental status grossly normal Speech and movement: Normal speech and movement present and Clear speech present Affect: normal affect Attitude: cooperative Thought process: Normal thought process present Thought content: Normal thought content present Insight: Fair insight present (Psych) Judgement: Fair judgement present (Psych) Office Procedures Post Void Residual Post Residual Void Post Void Residual (PVR): 63 [id number] Void Residual by ultrasound Results AMB Urinalysis, Automated UA Leukoctes 0 Amrit/uL Last Edit by Kelli Stovall on 06/21/23 13:20 UA Nitrite Negative Last Edit by Kelli Stovall on 06/21/23 13:20 UA Urobilinogen 0.2 mg/dL Last Edit by Kelli Stovall on 06/21/23 13:20 UA Protein 0 mg/dL Last Edit by Kelli Stovall on 06/21/23 13:20 UA pH 6.0 Last Edit by Kelli Stovall on 06/21/23 13:20 UA Blood 0 Rashad/uL Last Edit by Kelli Stovall on 06/21/23 13:20 UA Specific [place] 1.015 Last Edit by Kelli Stovall on 06/21/23 13:20 UA Ketone Negative Last Edit by Kelli Stovall on 06/21/23 13:20 UA Bilirubin 0 mg/dL Last Edit by Kelli Stovall on 06/21/23 13:20 UA Glucose 0 mg/dL Last Edit by Kelli Stovall on 06/21/23 13:20 Results Reviewed Results Reviewed: Laboratory Last Values Urine pH (Auto) 6.0 06/21/23 13:18 Specific [place] (Auto) 1.015 06/21/23 13:18 Urine Protein (Auto) 0 mg/dL 06/21/23 13:18 Glucose (UA)(Auto) 0 mg/dL 06/21/23 13:18 Urine Ketones (Auto) Negative 06/21/23 13:18 Urine Blood (Auto) 0 Rashad/uL 06/21/23 13:18 Urine Nitrite (Auto) Negative 06/21/23 13:18 Urine Bilirubin (Auto) 0 mg/dL 06/21/23 13:18 Urine Urobilinogen (Auto) 0.2 mg/dL 06/21/23 13:18 Leukocyte Esterase (Auto) 0 Amrit/uL 06/21/23 13:18 Assessment & Plan Assessment & Plan (1) Nocturia: Code(s): R35.1 - Nocturia Category: Medical (2) Lower urinary tract symptoms (LUTS): Code(s): R39.9 - Unspecified symptoms and signs involving the genitourinary system Category: Medical (3) Family history of prostate cancer: Code(s): Z80.42 - Family history of malignant neoplasm of prostate Category: Medical Plan In office urinalysis results reviewed with the patient today; as noted above. Discussed at length potential causes for lower urinary tract symptoms patient is experiencing. Will obtain retroperitoneal ultrasound for further assessment evaluation. Will obtain redraw of PSA with no sex the night before, no caffeine morning of, and no heavy lifting 1-2 days prior. Start Flomax as discussed and prescribed. Discussed possible near future in office cystoscopy for further assessment evaluation. Discussed at length correlation of nocturia with sleep apnea Discussed potential for near future at home sleep study. Discussed limiting fluids 2-3 hours prior to bed to decrease episodes of nocturia. Discussed attempting to sit when urinating to relax pelvis. Follow-up in 6-8 weeks with imaging and labs to be completed prior; or sooner with any issues, concerns, and or questions. Orders: Orders AMB Post Void Residual by ultrasound Today N40.1 - Benign prostatic hyperplasia with lower urinary tract symptoms, R39.12 - Poor urinary stream Prostate Specific Antigen Today R97.20 - Elevated prostate specific antigen [PSA] AMB Urinalysis Automated Today Z13.9 - Encounter for screening, unspecified US retroperitoneal comp Today R35.1 - Nocturia, R39.9 - Unspecified symptoms and signs involving the genitourinary system Medications: New tamsulosin 0.4 mg PO BEDTIME 30 caps 2RF 30 days N20.0 - Calculus of kidney Patient Instructions: The patient had an opportunity to ask questions regarding the treatment plan. All questions were answered. Physical exam, labs, and imaging were discussed and reviewed in detail. As well as risks, benefits, and discussion of treatment choices. No major barriers to understanding were identified. The patient expressed understanding and agreement with the above treatment plan. The patient was made aware they should contact our office by phone for worsening of their current condition, the appearance of new symptoms, or with any questions or concerns. Compliance is encouraged with any medications and follow up testing that is ordered. It is a privilege to be allowed the opportunity to participate in? your urological care.? Again, if you have any questions or concerns If you have any questions or concerns please do not hesitate to contact me. The office is [phone]. This note is constructed using voice recognition software. 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 Yours sincerely, MAURICIO Shah Coding Level of Care Code New Pt Level 4 (12147) Diagnoses Nocturia R35.1 Lower urinary tract symptoms (LUTS) R39.9 Family history of prostate cancer Z80.42 CPT Codes Post Residual Void - PVR CPT Code: 49969-Eybg Void Residual by ultrasound ([id number])
== END 2023-06-21 13:43 | disposition home or self-care (01) ==
PROVIDERS: PCP Internal Medicine; Visit Provider Nurse Practitioner Family
DX: R35.1 Nocturia (principal); R39.9 Unspecified symptoms and signs involving the genitourinary system; Z80.42 Family history of malignant neoplasm of prostate
CPT/HCPCS: 99204

== ENCOUNTER → 2023-06-21 12:55 | Outpatient (BNVA) | payer OTHER, SELFPAY | PROVIDERS: PCP Internal Medicine; Visit Provider Nurse Practitioner Family | DX: N40.1 Benign prostatic hyperplasia with lower urinary tract symptoms (principal); R39.12 Poor urinary stream; R35.1 Nocturia; R39.9 Unspecified symptoms and signs involving the genitourinary system; Z80.42 Family history of malignant neoplasm of prostate | CPT/HCPCS: 51798; 81003 ==

== ENCOUNTER 2023-08-09 08:25 | Outpatient (REF) | payer OTHER, SELFPAY ==
--- NOTE | ~2023-08-09 | US_ITS ---
EXAMINATION: US RETROPERITONEAL LIMITED (RENAL ONLY) CLINICAL INFORMATION: Nocturia. COMPARISON: None available. TECHNIQUE: Real-time imaging of the kidneys. FINDINGS: RIGHT KIDNEY: 9.7 x 5.1 x 5.1 cm (SAG x AP x TRV). The kidney is normal in size, contour, and echogenicity. Renal cortical thickness is normal. No calculi or focal parenchymal lesions. No hydronephrosis. LEFT KIDNEY: 10.1 x 4.8 x 5.5 cm (SAG x AP x TRV). The kidney is normal in size, contour, and echogenicity. Renal cortical thickness is normal. No calculi or focal parenchymal lesions. No hydronephrosis. Ultrasound of the bladder is dictated in a separate report on 08/12/2023. US/US renal BI IMPRESSION: Normal renal ultrasound.
== END 2023-08-09 08:26 | disposition home or self-care (01) ==
LOC: HO.HMGCX 08:25
PROVIDERS: PCP Internal Medicine; Visit Provider Nurse Practitioner Family
DX: R35.1 Nocturia (principal); R39.9 Unspecified symptoms and signs involving the genitourinary system
CPT/HCPCS: 76775

== ENCOUNTER 2023-08-12 08:00 | Outpatient (REF) | payer OTHER, SELFPAY ==
--- NOTE | ~2023-08-12 | US_ITS ---
EXAMINATION: US PELVIS LIMITED (BLADDER) CLINICAL INFORMATION: Nocturia. Lower urinary tract symptoms. COMPARISON: None available. TECHNIQUE: Real-time imaging of the bladder. FINDINGS: BLADDER: Well distended, without mass, generalized wall thickening or calculus. Bilateral ureteral jets are not demonstrated. Prevoid bladder volume is 545 mL. Postvoid bladder volume is 105 mL. OTHER: Enlarged prostate, volume 36.4 mL. US/US bladder IMPRESSION: 1. There is an increased postvoid residual volume. 2. There is mild prostatomegaly.
== END 2023-08-12 08:01 | disposition home or self-care (01) ==
LOC: HO.HMGCX 08:00
PROVIDERS: PCP Internal Medicine; Visit Provider Nurse Practitioner Family
DX: R35.1 Nocturia (principal); R39.9 Unspecified symptoms and signs involving the genitourinary system
CPT/HCPCS: 76857

== ENCOUNTER 2023-08-18 08:12 | Outpatient (AMB) | payer OTHER, SELFPAY ==
--- NOTE | 2023-08-18 08:24 | A.OFFVIS_ITS ---
Intake Visit Reasons: 8w/US Intake Note: Patient presents for follow up visit on: Nocturia and Ultrasound Results Imagin08/12/23 Urology Medications: Tamsulosin Blood Thinner: none Field Pipe Lines Supervisor Required: No Accompanied by: Self / Same As Patient Allergies No Known Allergies Allergy (Verified 08/24/23 08:03) Medication List - Last Reconciled 08/18/23 by MAXIMINO Shah- tamsulosin 0.4 mg PO BEDTIME 30 days HPI Comments Details: Ruperto is a very pleasant 58-year-old male patient of Dr. Rueda. He has a past medical history of BPH with weak urinary stream, family history of prostate cancer, polyarthralgia, lumbar herniated disc, degenerative arthritis of cervical spine, and history of colonic polyps. He presents to the office today for a follow up. Of note, patient was seen approximately 2 months ago as a new patient for ongoing lower urinary tract symptoms at which time a retroperitoneal ultrasound was ordered for further assessment evaluation. These results were reviewed with the patient today. Bilateral kidneys with no calculi, lesions, and or hydronephrosis. The bladder is well distended without mass, generalized wall thickening or calculus. Bilateral ureteral jets are not demonstrated. Pre void bladder volume is approximately 550 mL. Postvoid bladde r volume is approximately 100. Enlarged prostate with a volume of 36 mL.,He reports noting improvement in lower urinary tract symptoms (weak urinary stream, nocturia, urinary urgency, and urinary frequency) with 0.4 mg of Flomax daily. He does report a history of sleep apnea however has since stopped using his CPAP machine as he finds it difficult. Discussed at length correlation of sleep apnea with nocturia. He otherwise denies urinary urgency, urinary frequency, incontinence, hematuria, dysuria, foul smelling urine, flank pain, fever, and or chills. PSAs are as follows: 09/03 1.3, 10/06 2.3, 04/10 3.1 He does report having a family history of prostate cancer. He reports maternal and paternal uncles had prostate cancer. He reports having had JAYLEN with PCP and no abnormalities were noted. Discussed importance of obtaing PSA as ordered during last office visit. Discussed obtianing sleep study for further assessment and evaluation however he declines at this time. In office urinalysis results reviewed with the patient today. [facility] Medical History Benign prostatic hyperplasia with weak urinary stream Family history of prostate cancer Vaccination declined by patient Post-COVID chronic dyspnea Polyarthralgia Lumbar herniated disc Degenerative arthritis of cervical spine Hx of colonic polyps BPH (benign prostatic hyperplasia) Surgical History History of hand surgery Hx of right knee surgery Hx of lumbar discectomy Hx of colonoscopy Family History Paternal Uncle Prostate cancer Lung cancer Maternal Uncle Prostate cancer Mother Acquired hypothyroidism Social History Housing: Apartment Patient Tobacco Use Status: Never used Tobacco e-Cigarette/Vaping Use: Never Used Second Hand Smoke Exposure: No service: No Current occupational status: employed Cognitive needs: No Hearing needs: No Vision needs: Yes Office Procedures Post Void Residual Post Residual Void Post Void Residual (PVR): [id number] Void Residual by ultrasound Results AMB Urinalysis, Automated UA Leukoctes 0 Amrit/uL Last Edit by [email or web address] raul Stovall on 08/18/23 09:01 UA Nitrite Negative Last Edit by [employer] Wilman on 08/18/23 09:01 UA Urobilinogen 0.2 mg/dL Last Edit by [employer]in[employer]andrew Stovall on 08/18/23 09:01 UA Protein 15 mg/dL Last Edit by [employer] Wilman on 08/18/23 09:01 UA pH 5.5 Last Edit by [employer] Stovall on 08/18/23 09:01 UA Blood 0 Rashad/uL Last Edit by [employer] Stovall on 08/18/23 09:01 UA Specific [place] 1.020 Last Edit by [employer] on 08/18/23 09:01 UA Ketone Negative Last Edit by [employer] Wilman on 08/18/23 09:01 UA Bilirubin 0 mg/dL Last Edit by [employer] on 08/18/23 09:01 UA Glucose 0 mg/dL Last Edit by Cree on 08/18/23 09:01 Results Reviewed Results Reviewed: Laboratory Last Values Urine pH (Auto) 5.5 08/18/23 09:00 Specific [place] (Auto) 1.020 08/18/23 09:00 Urine Protein (Auto) 15 mg/dL 08/18/23 09:00 Glucose (UA)(Auto) 0 mg/dL 08/18/23 09:00 Urine Ketones (Auto) Negative 08/18/23 09:00 Urine Blood (Auto) 0 Rashad/uL 08/18/23 09:00 Urine Nitrite (Auto) Negative 08/18/23 09:00 Urine Bilirubin (Auto) 0 mg/dL 08/18/23 09:00 Urine Urobilinogen (Auto) 0.2 mg/dL 08/18/23 09:00 Leukocyte Esterase (Auto) 0 Amrit/uL 08/18/23 09:00 Date of Service: 08/09/23 EXAMINATION: US RETROPERITONEAL LIMITED (RENAL ONLY) FINDINGS: RIGHT KIDNEY: 9.7 x 5.1 x 5.1 cm (SAG x AP x TRV). The kidney is normal in size, contour, and echogenicity. Renal cortical thickness is normal. No calculi or focal parenchymal lesions. No hydronephrosis. LEFT KIDNEY: 10.1 x 4.8 x 5.5 cm (SAG x AP x TRV). The kidney is normal in size, contour, and echogenicity. Renal cortical thickness is normal. No calculi or focal parenchymal lesions. No hydronephrosis. Ultrasound of the bladder is dictated in a separate report on 08/12/2023. IMPRESSION: Normal renal ultrasound. --- Date of Service: 08/12/23 Procedure(s): US bladder EXAMINATION: US PELVIS LIMITED (BLADDER) FINDINGS: BLADDER: Well distended, without mass, generalized wall thickening or calculus. Bilateral ureteral jets are not demonstrated. Prevoid bladder volume is 545 mL. Postvoid bladder volume is 105 mL. OTHER: Enlarged prostate, volume 36.4 mL. IMPRESSION: 1. There is an increased postvoid residual volume. 2. There is mild prostatomegaly. Assessment & Plan Assessment & Plan (1) Elevated PSA: Code(s): R97.20 - Elevated prostate specific antigen [PSA] Category: Medical (2) Lower urinary tract symptoms (LUTS): Code(s): R39.9 - Unspecified symptoms and signs involving the genitourinary system Category: Medical (3) Benign prostatic hyperplasia with weak urinary stream: Code(s): N40.1 - Benign prostatic hyperplasia with lower urinary tract symptoms; R39.12 - Poor urinary stream Category: Medical (4) Family history of prostate cancer: Code(s): Z80.42 - Family history of malignant neoplasm of prostate Category: Medical (5) Enlarged prostate: Code(s): N40.0 - Benign prostatic hyperplasia without lower urinary tract symptoms Category: Medical Plan In office urinalysis results reviewed with the patient today; as noted above. Recent retroperitoneal ultrasound results reviewed with the patient today; as noted above. Discussed at length potential causes of borderline elevated PSA given patient's age as well as family history of prostate cancer. Discussed further treatment options to include surveillance monitoring versus prostate biopsy verses MRI of the prostate verses trial of finasteride; risks and benefits of these interventions were discussed at length. All questions were answered. Discussed, educated, and stressed the importance of obtaining PSA as ordered and following up for continuity of care. Continue Flomax as patient reports significant improvement lower urinary tracts symptoms he had been experiencing; refill provided. Follow-up in 4 months with PSA to be completed prior; or sooner with any issues, concerns, and or questions. Orders: Orders AMB Post Void Residual by ultrasound 08/18/23 R39.9 - Unspecified symptoms and signs involving the genitourinary system AMB Urinalysis Automated 08/18/23 Z13.9 - Encounter for screening, unspecified Prostate Specific Antigen 4 Months R97.20 - Elevated prostate specific antigen [PSA], N40.1 - Benign prostatic hyperplasia with lower urinary tract symptoms, R39.12 - Poor urinary stream Medications: Changed From tamsulosin 0.4 mg PO BEDTIME 30 days 30 caps 2RF N20.0 - Calculus of kidney To tamsulosin 0.4 mg PO BEDTIME 90 caps 0RF 90 days N20.0 - Calculus of kidney Patient Instructions: The patient had an opportunity to ask questions regarding the treatment plan. All questions were answered. Physical exam, labs, and imaging were discussed and reviewed in detail. As well as risks, benefits, and discussion of treatment choices. No major barriers to understanding were identified. The patient expressed understanding and agreement with the above treatment plan. The patient was made aware they should contact our office by phone for worsening of their current condition, the appearance of new symptoms, or with any questions or concerns. Compliance is encouraged with any medications and follow up testing that is ordered. It is a privilege to be allowed the opportunity to participate in? your urological care.? Again, if you have any questions or concerns If you have any questions or concerns please do not hesitate to contact me. The office is [phone]. This note is constructed using voice recognition software. While every effort has been made to ensure accuracy student financial aid manager errors may have been included. Yours sincerely, YUNG Shah Coding Level of Care Code Est Pt Level 3 (11688) Diagnoses Elevated PSA R97.20 Lower urinary tract symptoms (LUTS) R39.9 Benign prostatic hyperplasia with weak urinary stream N40.1; R39.12 Family history of prostate cancer Z80.42 Enlarged prostate N40.0 CPT Codes Post Residual Void - PVR CPT Code: 73630-Xtwo Void Residual by ultrasound ([id number])
== END 2023-08-18 09:06 | disposition home or self-care (01) ==
PROVIDERS: PCP Internal Medicine; Visit Provider Nurse Practitioner Family
DX: R97.20 Elevated prostate specific antigen [PSA] (principal); R39.9 Unspecified symptoms and signs involving the genitourinary system; N40.1 Benign prostatic hyperplasia with lower urinary tract symptoms; R39.12 Poor urinary stream; Z80.42 Family history of malignant neoplasm of prostate; N40.0 Benign prostatic hyperplasia without lower urinary tract symptoms
CPT/HCPCS: 99213

== ENCOUNTER → 2023-08-18 08:12 | Outpatient (BNVA) | payer OTHER, SELFPAY | PROVIDERS: PCP Internal Medicine; Visit Provider Nurse Practitioner Family | DX: R97.20 Elevated prostate specific antigen [PSA] (principal); N40.1 Benign prostatic hyperplasia with lower urinary tract symptoms; R39.12 Poor urinary stream; R39.9 Unspecified symptoms and signs involving the genitourinary system; Z80.42 Family history of malignant neoplasm of prostate; Z79.899 Other long term (current) drug therapy | CPT/HCPCS: 51798; 81003 ==

== ENCOUNTER 2023-08-24 07:59 | Outpatient (AMB) | payer OTHER, SELFPAY ==
--- NOTE | 2023-08-24 08:02 | AM.OFFWIN_ITS ---
Intake Vital Signs 08/24/23 08:04 Height 6 ft Weight 226 lb BMI 30.6 BP 130/70 Blood Pressure Location Rt brachial Position Sitting Pulse 76 Pulse Source Pulse Oximeter Temp 98.6 F Temp Source Oral Pulse Oximetry (%) 98 Intake Visit Reasons: EP hives congestion Intake Note: pt here c/o cough with congestion, chest tightness and fever for 4 days. patient states he broke out in hives on back Patient Tobacco Use Status: Never used Tobacco Allergies No Known Allergies Allergy (Verified 08/24/23 08:03) Do you need a note to return to daycare/school/sports/work: No HPI HPI Comments History of Present Illness Details Patient is a 58-year-old male complaining of 4 days of cough, head congestion, fever with a T-max of 101 degrees, as well as hives that originally broke out on his back but then subsided into what he thinks looks like scratches on his back and then the hives came out on his legs and arms. He states he had hives the last time he had a viral illness like this a few years ago. He states he is able to tolerate eating and drinking, able to swallow with no issues. He denies any feeling of a tickle in the back of his throat or feeling like his throat is closing up or shortness of breath or wheezing. He states he took [place] cold medicine on the 1st and 2nd day he was sick but he has taken this medication before. He then took Benadryl which helped the hives fade away. He states his [id number]-[id number] who lives downstairs from him was sick last week and is now better with no intervention except for [id number] medication. [facility] Medical History Benign prostatic hyperplasia with weak urinary stream Family history of prostate cancer Vaccination declined by patient Post-COVID chronic dyspnea Polyarthralgia Lumbar herniated disc Degenerative arthritis of cervical spine Hx of colonic polyps BPH (benign prostatic hyperplasia) Surgical History History of hand surgery Hx of right knee surgery Hx of lumbar discectomy Hx of colonoscopy Family History Paternal Uncle Prostate cancer Lung cancer Maternal Uncle Prostate cancer Mother Acquired hypothyroidism Social History Housing: Apartment Patient Tobacco Use Status: Never used Tobacco e-Cigarette/Vaping Use: Never Used Second Hand Smoke Exposure: No service: No Current occupational status: employed Cognitive needs: No Hearing needs: No Vision needs: Yes Review of Systems Const All systems reviewed & are unremarkable except as noted in HPI and below Physical Exam Vital Signs: Last Vital Signs Temp 98.6 F 08/24/23 08:04 Pulse 76 08/24/23 08:04 BP 130/70 08/24/23 08:04 Pulse Ox 98 08/24/23 08:04 BMI result Body Mass Index 30.6 Const General: cooperative, healthy appearing, comfortable and no acute distress Orientation/consciousness: patient oriented x3 Limitations: no limitations HEENT Head: Yes normal to inspection Ears: hearing grossly normal bilaterally, external ears normal and TM's normal bilaterally General nose exam: Normal external nose present, Normal nares present and No nasal discharge present Face and sinus: Yes normal facial exam and Yes sinuses nontender Mouth: Normal oral and palatal mucosa present and moist mucous membranes Throat: Yes tonsils normal, Yes uvula midline and Yes posterior oropharynx abnormal (Erythema) Eyes General: appearance normal, both eyes and all related structures Neck Neck: Yes normal visual inspection Resp Effort & Inspection: normal respiratory effort, able to speak in complete sentences, no respiratory distress, not tachypneic, no tripod positioning and no use of accessory muscles Auscultation: clear to auscultation bilaterally Cardio Rate: regular rate Rhythm: regular rhythm Heart sounds: normal S1 and S2 Skin Other: hives noted on upper left arm. linear lines noted on upper left back, however no hives present. No ecchymosis no signs of infection noted Neuro General: patient oriented x3 Extrem General: Yes normal to inspection and Yes no clubbing, cyanosis or edema Assessment & Plan Assessment & Plan (1) URI (upper respiratory infection): Code(s): J06.9 - Acute upper respiratory infection, unspecified Qualifiers: URI type: unspecified viral URI Qualified Code(s): J06.9 - Acute upper respiratory infection, unspecified Plan: VSS, no concern for airway compromise, hives likely 2/2 viral illness. sent hydroxyzene to pharmacy for the next few days, gave patient red flag warning signs and when to call 911 or seek emergent medical attention. Tested for COVID flu RSV Plan See above Orders: Orders SARS-CoV2/FLU/RSV Today J06.9 - Acute upper respiratory infection, unspecified Medications: New hydroxyzine HCl 10 mg PO QID 14 tabs 0RF Coding Level of Care Code Est Pt Level 3 (76189) Diagnoses Viral upper respiratory tract infection J06.9 URI type: unspecified viral URI
[2023-08-24 08:04] VITALS: BP 130/70; PULSE 76; TEMP 37; O2SAT 98; BMI 30.6
== END 2023-08-24 09:01 | disposition home or self-care (01) ==
PROVIDERS: PCP Internal Medicine; Visit Provider Physician Assistant
DX: J06.9 Acute upper respiratory infection, unspecified (principal)
CPT/HCPCS: 99213

== ENCOUNTER 2023-08-24 08:31 | Outpatient (REF) | payer OTHER, SELFPAY ==
[2023-08-24 11:25] LABS: Influenza A PCR NEGATIVE (Negative); Influenza B PCR NEGATIVE (Negative); Resp Syncy Virus RNA Qual PCR NEGATIVE (Negative); SARS COV2 PCR INHOUSE POSITIVE (Negative)
== END 2023-08-24 08:32 | disposition home or self-care (01) ==
LOC: HO.LAB 08:31
PROVIDERS: Visit Provider Physician Assistant
DX: J06.9 Acute upper respiratory infection, unspecified (principal)
CPT/HCPCS: 0241U

== ENCOUNTER 2023-12-17 07:50 | Outpatient (REF) | payer OTHER, SELFPAY | END 2023-12-17 07:51 | disposition home or self-care (01) | LOC: HO.HMGCLDS 07:50 | PROVIDERS: PCP Internal Medicine; Visit Provider Nurse Practitioner Family | DX: R97.20 Elevated prostate specific antigen [PSA] (principal); N40.1 Benign prostatic hyperplasia with lower urinary tract symptoms; R39.12 Poor urinary stream; Z12.5 Encounter for screening for malignant neoplasm of prostate | CPT/HCPCS: 36415; 84153 ==

== ENCOUNTER 2023-12-20 08:15 | Outpatient (AMB) | payer OTHER, SELFPAY ==
--- NOTE | 2023-12-20 08:22 | A.OFFVIS_ITS ---
Intake Visit Reasons: 4m/PSA/PVR Intake Note: Patient presents for follow up visit on: Nocturia and PSA lab results PSA: 2.50 Urology Medications: Tamsulosin Blood Thinner: none PVR: 20ml's Inspector Golf Ball Required: No Accompanied by: Self / Same As Patient Allergies No Known Allergies Allergy (Verified 12/20/23 08:51) Medication List - Last Reconciled 12/20/23 by MAURICIO Shah No Known Home Meds HPI Comments Details: Ruperto is a very pleasant 58-year-old male patient of Dr. Rueda. He has a past medical history of BPH with weak urinary stream, family history of prostate cancer, polyarthralgia, lumbar herniated disc, degenerative arthritis of cervical spine, and history of colonic polyps. He presents to the office today for a follow up. Recent PSA results reviewed with the patient today as noted and trended below. He reports feeling lower urinary tract symptoms of nocturia in urinary urgency somewhat improved with 0.4 mg of Flomax however does feel lower urinary tract symptoms continue to be bothersome as he continues with nocturia 2-3 times per night and episodes of urinary urgency and urinary frequency. He does feel weak urinary stream has improved. We discussed at length potential causes of these lower urinary tract symptoms. Discuss increase in Flomax as patient states this was somewhat helpful verses trial of another alpha-bhargavi. Previous workup has included a retroperitoneal ultrasound 08/08 noting bilateral kidneys with no calculi, lesions, and or hydronephrosis. The bladder is well distended without mass, generalized wall thickening or calculus. Bilateral ureteral jets are not demonstrated. Pre void bladder volume is approximately 550 mL. Postvoid bladder volume is approximately 100. Enlarged prostate with a volume of 36 mL. He does report a history of sleep apnea however has since stopped using his CPAP machine as he finds it difficult. Discussed at length correlation of sleep apnea with nocturia. He otherwise denies incontinence, hematuria, dysuria, foul smelling urine, flank pain, fever, and or chills. PSAs are as follows: 09/03 1.3, 10/06 2.3, 04/10 3.1, 01/08 2.5 He does report having a family history of prostate cancer. He reports maternal and paternal uncles had prostate cancer. Discussed obtaining sleep study for further assessment and evaluation however he declines at this time. In office urinalysis results reviewed with the patient today. PVR 20ml's. [facility] Medical History (Reviewed 12/20/23 @ 08:[address] [facility] [place]) Benign prostatic hyperplasia with weak urinary stream Family history of prostate cancer Vaccination declined by patient Post-COVID chronic dyspnea Polyarthralgia Lumbar herniated disc Degenerative arthritis of cervical spine Hx of colonic polyps BPH (benign prostatic hyperplasia) Surgical History History of hand surgery Hx of right knee surgery Hx of lumbar discectomy Hx of colonoscopy Family History Paternal Uncle Prostate cancer Lung cancer Maternal Uncle Prostate cancer Mother Acquired hypothyroidism Social History Housing: Apartment Patient Tobacco Use Status: Never used Tobacco e-Cigarette/Vaping Use: Never Used Second Hand Smoke Exposure: No service: No Current occupational status: employed Cognitive needs: No Hearing needs: No Vision needs: Yes Review of Systems Const Reports no additional complaints Eyes Reports no additional complaints ENT Reports no additional complaints Card Reports no additional complaints Resp Reports no additional complaints GI Reports as per HPI Reports as per HPI Musc Reports as per HPI Neuro Reports no additional complaints Psych Reports no additional complaints Endo Reports no additional complaints Rui/Lymph Reports no additional complaints Aller/Immun Reports no additional complaints Physical Exam Const General: cooperative, healthy appearing, comfortable, no acute distress, well developed, alert and awake Orientation/consciousness: patient oriented x3 Limitations: no limitations HEENT Head: Yes normal to inspection, Yes normocephalic and Yes atraumatic Ears: hearing grossly normal bilaterally Eyes General: appearance normal, both eyes and all related structures Neck Neck: Yes normal visual inspection and Yes trachea midline Chest Chest palpation & inspection: normal inspection of the chest Resp Effort & Inspection: normal respiratory effort and able to speak in complete sentences Cardio Rate: regular rate GI Inspection: Yes normal to inspection General: Yes no CVA tenderness Back/Spine/Pelvis Back: no CVA tenderness Skin General skin exam: no rashes or lesions noted Neuro General: patient oriented x3 Extrem General: Yes normal to inspection Psych Appearance: grossly normal and well kempt Mental Status: mental status grossly normal Speech and movement: Normal speech and movement present and Clear speech present Affect: normal affect Attitude: cooperative Thought process: Normal thought process present Thought content: Normal thought content present Insight: Fair insight present (Psych) Judgement: Fair judgement present (Psych) Office Procedures Post Void Residual Post Residual Void Post Void Residual (PVR): 20 [id number] Void Residual by ultrasound Results AMB Urinalysis, Automated UA Leukoctes 0 Amrit/uL Last Edit by Kelli Stovall on 12/20/23 08:35 UA Nitrite Last Edit by Kelli Stovall on 12/20/23 08:35 UA Urobilinogen 0.2 mg/dL Last Edit by Kelli Gasparsuellen on 12/20/23 08:35 UA Protein 15 mg/dL Last Edit by Kelli Gasparsuellen on 12/20/23 08:35 UA pH 6.0 Last Edit by Kelli Gasparsuellen on 12/20/23 08:35 UA Blood 0 Rashad/uL Last Edit by Kelli Gasparsuellen on 12/20/23 08:35 UA Specific [place] 1.020 Last Edit by Jjtroyandrew Gasparsuellen on 12/20/23 08:35 UA Ketone Last Edit by Jjtroyandrew Gasparsuellen on 12/20/23 08:35 UA Bilirubin 0 mg/dL Last Edit by Kelli Gasparsuellen on 12/20/23 08:35 UA Glucose 0 mg/dL Last Edit by JjIDEA SPHEREandrew Gasparsuellen on 12/20/23 08:35 Results Reviewed Results Reviewed: Laboratory Last Values Urine pH (Auto) 6.0 12/20/23 08:34 Specific [place] (Auto) 1.020 12/20/23 08:34 Urine Protein (Auto) 15 mg/dL 12/20/23 08:34 Glucose (UA)(Auto) 0 mg/dL 12/20/23 08:34 Urine Blood (Auto) 0 Rashad/uL 12/20/23 08:34 Urine Bilirubin (Auto) 0 mg/dL 12/20/23 08:34 Urine Urobilinogen (Auto) 0.2 mg/dL 12/20/23 08:34 Leukocyte Esterase (Auto) 0 Amrit/uL 12/20/23 08:34 Assessment & Plan Assessment & Plan (1) Enlarged prostate: Code(s): N40.0 - Benign prostatic hyperplasia without lower urinary tract symptoms Category: Medical (2) Elevated PSA: Code(s): R97.20 - Elevated prostate specific antigen [PSA] Category: Medical (3) Lower urinary tract symptoms (LUTS): Code(s): R39.9 - Unspecified symptoms and signs involving the genitourinary system Category: Medical (4) Benign prostatic hyperplasia with weak urinary stream: Code(s): N40.1 - Benign prostatic hyperplasia with lower urinary tract symptoms; R39.12 - Poor urinary stream Category: Medical (5) BPH (benign prostatic hyperplasia): Code(s): N40.0 - Benign prostatic hyperplasia without lower urinary tract symptoms Category: Medical (6) Nocturia: Code(s): R35.1 - Nocturia Category: Medical (7) Family history of prostate cancer: Code(s): Z80.42 - Family history of malignant neoplasm of prostate Category: Medical Plan In office urinalysis results reviewed with the patient today; as noted above. PVR 20 mL Recent PSA results reviewed with the patient today; as noted above. Discussed at length potential causes of lower urinary tract symptoms patient is experiencing. Will increase Flomax to 0.8 mg daily. Discussed possible near future in office cystoscopy and or urodynamics for further assessment evaluation. Discussed obtaining sleep study for further assessment evaluation as well as correlation of sleep apnea and nocturia. Discussed importance of limiting fluids 2-3 hours prior to bed to decrease episodes of nocturia. Discussed bladder triggers/irritants. Follow-up in 1-3 months; or sooner with any issues, concerns, and or questions. Orders: Orders AMB Urinalysis Automated Today Z13.9 - Encounter for screening, unspecified AMB Post Void Residual by ultrasound Today R39.9 - Unspecified symptoms and signs involving the genitourinary system Medications: New tamsulosin 0.8 mg (2 x 0.4 mg) PO BEDTIME 30 days 60 caps 3RF N40.1 - Benign prostatic hyperplasia with lower urinary tract symptoms, R35.1 - Nocturia Patient Instructions: The patient had an opportunity to ask questions regarding the treatment plan. All questions were answered. Physical exam, labs, and imaging were discussed and reviewed in detail. As well as risks, benefits, and discussion of treatment choices. No major barriers to understanding were identified. The patient expressed understanding and agreement with the above treatment plan. The patient was made aware they should contact our office by phone for worsening of their current condition, the appearance of new symptoms, or with any questions or concerns. Compliance is encouraged with any medications and follow up testing that is ordered. It is a privilege to be allowed the opportunity to participate in? your urological care.? Again, if you have any questions or concerns If you have any questions or concerns please do not hesitate to contact me. The office is [phone]. This note is constructed using voice recognition software. While every effort has been made to ensure accuracy bulb weeder errors may have been included. Yours sincerely, MAURICIO Shah Coding Level of Care Code Est Pt Level 3 (86086) Complex EM visit Add On G2211 Diagnoses Enlarged prostate N40.0 Elevated PSA R97.20 Lower urinary tract symptoms (LUTS) R39.9 Benign prostatic hyperplasia with weak urinary stream N40.1; R39.12 BPH (benign prostatic hyperplasia) N40.0 Nocturia R35.1 Family history of prostate cancer Z80.42 CPT Codes Post Residual Void - PVR CPT Code: 83257-Mqfz Void Residual by ultrasound ([id number])
== END 2023-12-20 08:52 | disposition home or self-care (01) ==
LOC: HO.HUSH 08:16
PROVIDERS: PCP Internal Medicine; Visit Provider Nurse Practitioner Family
DX: N40.0 Benign prostatic hyperplasia without lower urinary tract symptoms (principal); R97.20 Elevated prostate specific antigen [PSA]; R39.9 Unspecified symptoms and signs involving the genitourinary system; N40.1 Benign prostatic hyperplasia with lower urinary tract symptoms; R39.12 Poor urinary stream; R35.1 Nocturia; Z80.42 Family history of malignant neoplasm of prostate; Z13.9 Encounter for screening, unspecified
CPT/HCPCS: 99213

== ENCOUNTER → 2023-12-20 08:15 | Outpatient (BNVA) | payer OTHER, SELFPAY | PROVIDERS: PCP Internal Medicine; Visit Provider Nurse Practitioner Family | DX: N40.1 Benign prostatic hyperplasia with lower urinary tract symptoms (principal); R39.12 Poor urinary stream; R35.1 Nocturia; R39.9 Unspecified symptoms and signs involving the genitourinary system; R97.20 Elevated prostate specific antigen [PSA]; Z80.42 Family history of malignant neoplasm of prostate | CPT/HCPCS: 51798; 81003 ==

== ENCOUNTER 2024-02-01 07:54 | Outpatient (AMB) | payer OTHER, SELFPAY ==
--- NOTE | 2024-02-01 07:54 | A.OFFVIS_ITS ---
Intake Visit Reasons: 6w follow up Intake Note: Patient presents today for tele visit follow up visit on: Nocturia Urology Medications: Tamsulosin Blood Thinner: none Test Tube Maker Required: No Accompanied by: Self / Same As Patient Allergies No Known Allergies Allergy (Verified 02/01/24 08:15) Medication List - Last Reconciled 02/01/24 by YUNG Shah tamsulosin 0.8 mg (2 x 0.4 mg) PO BEDTIME 30 days HPI Comments Details: Ruperto is a very pleasant 58-year-old male patient of Dr. Rueda. He has a past medical history of BPH with weak urinary stream, family history of prostate cancer, polyarthralgia, lumbar herniated disc, degenerative arthritis of cervical spine, and history of colonic polyps. He is being followed up on today via video telehealth for his ongoing lower urinary tract symptoms. Of note, patient was seen approximately 6 weeks ago at which time his Flomax was increased to 0.8 mg daily. In discussion with the patient today he does report noting improvement in weak urinary stream, urinary urgency, and frequency however continues with episodes of nocturia up to 3 times per night. We discussed at length potential causes of these lower urinary tract symptoms. Previous workup has included a retroperitoneal ultrasound 08/08 noting bilateral kidneys with no calculi, lesions, and or hydronephrosis. The bladder is well distended without mass, generalized wall thickening or calculus. Bilateral ureteral jets are not demonstrated. Pre void bladder volume is approximately 550 mL. Postvoid bladder volume is approximately 100. Enlarged prostate with a volume of 36 mL. He does report a history of sleep apnea however has since stopped using his CPAP machine as he finds it difficult. Discussed at length correlation of sleep apnea with nocturia. He otherwise denies incontinence, hematuria, dysuria, foul smelling urine, flank pain, fever, and or chills. PSAs are as follows: 09/03 1.3, 10/06 2.3, 04/10 3.1, 01/08 2.5 He does report having a family history of prostate cancer. He reports maternal and paternal uncles had prostate cancer. Discussed obtaining sleep study for further assessment and evaluation however he declines at this time. [facility] Medical History Benign prostatic hyperplasia with weak urinary stream Family history of prostate cancer Vaccination declined by patient Post-COVID chronic dyspnea Polyarthralgia Lumbar herniated disc Degenerative arthritis of cervical spine Hx of colonic polyps BPH (benign prostatic hyperplasia) Surgical History History of hand surgery Hx of right knee surgery Hx of lumbar discectomy Hx of colonoscopy Family History Paternal Uncle Prostate cancer Lung cancer Maternal Uncle Prostate cancer Mother Acquired hypothyroidism Social History Housing: Apartment Patient Tobacco Use Status: Never used Tobacco e-Cigarette/Vaping Use: Never Used Second Hand Smoke Exposure: No service: No Current occupational status: employed Cognitive needs: No Hearing needs: No Vision needs: Yes Review of Systems Const Reports no additional complaints Eyes Reports no additional complaints ENT Reports no additional complaints Card Reports no additional complaints Resp Reports no additional complaints GI Reports as per HPI Reports as per HPI Musc Reports as per HPI Neuro Reports no additional complaints Psych Reports no additional complaints Endo Reports no additional complaints Rui/Lymph Reports no additional complaints Aller/Immun Reports no additional complaints Physical Exam Const General: cooperative, healthy appearing, comfortable, no acute distress, well developed, alert and awake Orientation/consciousness: patient oriented x3 Resp Effort & Inspection: normal respiratory effort and able to speak in complete sentences Neuro General: patient oriented x3 Psych Appearance: grossly normal and well kempt Mental Status: mental status grossly normal Speech and movement: Normal speech and movement present and Clear speech present Affect: normal affect Attitude: cooperative Thought process: Normal thought process present Thought content: Normal thought content present Insight: Fair insight present (Psych) Judgement: Fair judgement present (Psych) Telehealth Telehealth Telehealth Platform: [facility] Location of provider rendering services: practice address Location of patient: address on file Patient Identification confirmed using: Name, : Yes Telehealth method: video Patient verbally consented to treatment: Yes Patient verbally consented to billing insurance company: Yes Patient informed of any privacy concerns related to visit: Yes Minutes spent on Phone/Video with Pt.: 20 Assessment & Plan Assessment & Plan (1) Enlarged prostate: Code(s): N40.0 - Benign prostatic hyperplasia without lower urinary tract symptoms Category: Medical (2) Elevated PSA: Code(s): R97.20 - Elevated prostate specific antigen [PSA] Category: Medical (3) Lower urinary tract symptoms (LUTS): Code(s): R39.9 - Unspecified symptoms and signs involving the genitourinary system Category: Medical (4) Benign prostatic hyperplasia with weak urinary stream: Code(s): N40.1 - Benign prostatic hyperplasia with lower urinary tract symptoms; R39.12 - Poor urinary stream Category: Medical (5) BPH (benign prostatic hyperplasia): Code(s): N40.0 - Benign prostatic hyperplasia without lower urinary tract symptoms Category: Medical (6) Nocturia: Code(s): R35.1 - Nocturia Category: Medical (7) Family history of prostate cancer: Code(s): Z80.42 - Family history of malignant neoplasm of prostate Category: Medical Plan Discussed at length potential causes of lower urinary tract symptoms patient is experiencing. Stop Flomax. Start terazosin as discussed and prescribed. Discussed possible near future in office cystoscopy and or urodynamics for further assessment evaluation. Discussed obtaining sleep study for further assessment evaluation as well as correlation of sleep apnea and nocturia. Discussed importance of limiting fluids 2-3 hours prior to bed to decrease episodes of nocturia. Discussed bladder triggers/irritants. Follow-up in 1-3 months; or sooner with any issues, concerns, and or questions. Medications: New terazosin 5 mg PO BEDTIME 30 caps 3RF 30 days N40.1 - Benign prostatic hyperplasia with lower urinary tract symptoms, R35.0 - Frequency of micturition Discontinued tamsulosin Discontinued Reason: Doctor's Order 0.8 mg (2 x 0.4 mg) PO BEDTIME 30 days 60 caps 3RF N40.1 - Benign prostatic hyperplasia with lower urinary tract symptoms, R35.1 - Nocturia Patient Instructions: The patient had an opportunity to ask questions regarding the treatment plan. All questions were answered. Physical exam, labs, and imaging were discussed and reviewed in detail. As well as risks, benefits, and discussion of treatment choices. No major barriers to understanding were identified. The patient expressed understanding and agreement with the above treatment plan. The patient was made aware they should contact our office by phone for worsening of their current condition, the appearance of new symptoms, or with any questions or concerns. Compliance is encouraged with any medications and follow up testing that is ordered. It is a privilege to be allowed the opportunity to participate in? your urological care.? Again, if you have any questions or concerns If you have any questions or concerns please do not hesitate to contact me. The office is [phone]. This note is constructed using voice recognition software. While every effort has been made to ensure accuracy cream hauler errors may have been included. Yours sincerely, MAURICIO Shah Coding Level of Care Code Tele Est Pt Level 4 (17638) Diagnoses Enlarged prostate N40.0 Elevated PSA R97.20 Lower urinary tract symptoms (LUTS) R39.9 Benign prostatic hyperplasia with weak urinary stream N40.1; R39.12 BPH (benign prostatic hyperplasia) N40.0 Nocturia R35.1 Family history of prostate cancer Z80.42
== END 2024-02-01 12:13 | disposition home or self-care (01) ==
LOC: HO.HUSH 07:54
PROVIDERS: PCP Internal Medicine; Visit Provider Nurse Practitioner Family
DX: N40.0 Benign prostatic hyperplasia without lower urinary tract symptoms (principal); R97.20 Elevated prostate specific antigen [PSA]; R39.9 Unspecified symptoms and signs involving the genitourinary system; N40.1 Benign prostatic hyperplasia with lower urinary tract symptoms; R39.12 Poor urinary stream; R35.1 Nocturia; Z80.42 Family history of malignant neoplasm of prostate
CPT/HCPCS: 99214

== ENCOUNTER 2024-09-28 14:59 | Outpatient (REF) | payer OTHER, SELFPAY ==
--- NOTE | ~2024-09-28 | XR_ITS ---
EXAMINATION: XR ELBOW, RIGHT CLINICAL INFORMATION: M25.521 - Pain in right elbow COMPARISON: None available. TECHNIQUE: AP, lateral, and oblique views of the right elbow. FINDINGS: No acute cortical disruption or malalignment. No lytic or blastic lesions. No subcutaneous emphysema. No gross joint effusion. No metallic or radiopaque foreign body. No calcifications in the soft tissues. XR/XR elbow RT min 3V IMPRESSION: Normal x-ray. Electronically signed by: Rebel Krishnan MD 09/28/2024 04:03 PM EDT
== END 2024-09-28 15:00 | disposition home or self-care (01) ==
LOC: HO.HMGCX 14:59
PROVIDERS: PCP Internal Medicine; Visit Provider Internal Medicine
DX: M25.521 Pain in right elbow (principal); G89.29 Other chronic pain
CPT/HCPCS: 73080; 96127

== ENCOUNTER 2024-09-28 14:59 | Outpatient (AMB) | payer OTHER, SELFPAY ==
--- NOTE | 2024-09-28 15:16 | A.OFFPC_ITS ---
Vital Signs 09/28/24 15:23 Height 6 ft Weight 196 lb BMI 26.6 BP 120/74 Blood Pressure Location Lt brachial Position Sitting Respiration 15 Pulse 75 Pulse Source Pulse Oximeter Temp 98.5 F Temp Source Oral Pulse Oximetry (%) 98 Oxygen Delivery Method Room Air Intake Visit Reasons: R elbow pain Intake Note: Pt is here today c/o Rt elbow pain Allergies No Known Allergies Allergy (Verified 09/28/24 15:28) Medication List - Last Reconciled 09/28/24 by Nirmala Rueda MD terazosin 5 mg PO BEDTIME 30 days Tobacco use date assessed: 09/28/24 Dental Screening Dental Screen Date: 09/28/24 Did you have a dental visit in the last 12 months?: No Did you have a dental problem in the last 6 months where you did not have access to dental care?: No Was dental information given to patient?: Patient has dentist HPI R elbow pain HPI Details - The patient is a 59-year-old male pres enting with right elbow pain, which has been present for approximately five months. - The pain is exacerbated by lifting and certain movements, but not associated with numbness or pain radiating to the fingers. - The patient has tried tylenol and ibup rofen , as well as [id number] topical treatments without relief. - There is a history of an enlarged pros reynolds diagnosed last year, with no recent follow-up or medication adherence noted. [facility] Medical History (Updated 09/28/24 @ 15:31 by Nirmala Rueda MD) Chronic pain of right elbow Benign prostatic hyperplasia with weak urinary stream Family history of prostate cancer Vaccination declined by patient Post-COVID chronic dyspnea Polyarthralgia Lumbar herniated disc Degenerative arthritis of cervical spine Hx of colonic polyps BPH (benign prostatic hyperplasia) Surgical History History of hand surgery Hx of right knee surgery Hx of lumbar discectomy Hx of colonoscopy Family History Paternal Uncle Prostate cancer Lung cancer Maternal Uncle Prostate cancer Mother Acquired hypothyroidism Social History Housing: Apartment Patient Tobacco Use Status: Never used Tobacco e-Cigarette/Vaping Use: Never Used Second Hand Smoke Exposure: No service: No Current occupational status: employed Cognitive needs: No Hearing needs: No Vision needs: Yes Questionnaire PHQ-9 Over the last 2 weeks, how often have you been bothered by any of the following problems? 1. Little interest or pleasure in doing things: not at all 2. Feeling down, depressed, or hopeless: not at all 3. Trouble falling or staying asleep, or sleeping too much: several days 4. Feeling tired or having little energy: several days 5. Poor appetite or overeating: not at all 6. Feeling bad about yourself - or that you are a failure or have let yourself or your family down: not at all 7. Trouble concentrating on things, such as reading the newspaper or watching television: not at all 8. Moving or speaking so slowly that other people could have noticed. Or the opposite - being so fidgety or restless that you have been moving around a lot more than usual: not at all 9. Thoughts that you would be better off or of hurting yourself in some way : not at all Total score: 2 Depression Screening Interpretation: Negative Depression Screening Done: Yes 55834 - PHQ-9 Billing: Yes Source: Developed by Drs. Phoenix Perdue, Berna Noel, Cleve Bennett and colleagues, with an educational sanjuana from [employer]. Thrive Questionnaire Date Thrive assessed: 09/25/24 I am a: Patient What is your living situation today?: I have a steady place to live Within the past 12 months, did the food you bought not last and you didn't have the money to get more?: Never true Within the past 12 months, did you worry whether your food would run out before you got money to buy more?: Never true Do you have trouble paying for medicines?: No Do you have trouble getting transportation to medical appointments?: No Do you have trouble paying your heating and electricity bill?: No Do you have trouble taking care of your child, family member or friend?: No Do you have trouble with day-to-day activities such as bathing, preparing meals, shopping, managing finances, etc.?: No Are you currently unemployed and looking for a job?: No Are you interested in more education?: No Please select the resources that you would like help with: None Currently or been in a relationship where the following occur: No concerns reported THRIVE Score: 0 AUDIT C Alcohol Use Questionnaire (AUDIT-C) 1. How often do you have a drink containing alcohol?: Never 3. How often do you have six or more drinks on one occasion?: Never Total Score: 0 Score Reviewed/Action Taken: Yes KLEVER-7 AMB Questionnaire KLEVER-7 Date KLEVER - 7 assessed: 09/28/24 Source: Developed by Drs. Phoenix Perdue, Berna Noel, Cleve Bennett and colleagues, with an educational sanjuana from [employer]. KLEVER-7 Assessment Billing KLEVER-7 Assessment Tool: KLEVER-7 Assessment 33523 Review of Systems Const All systems reviewed & are unremarkable except as noted in HPI and below Physical exam (Primary Care) Vital Signs: Last Vital Signs Temp 98.5 F 09/28/24 15:23 Pulse 75 09/28/24 15:23 Resp 15 09/28/24 15:23 BP 120/74 09/28/24 15:23 Pulse Ox 98 09/28/24 15:23 Oxygen Delivery Method Room Air 09/28/24 15:23 BMI result Body Mass Index 26.6 Tobacco/Smoking Status: Tobacco use Status Tobacco use date assessed 09/28/24 09/28/24 15:17 Patient Tobacco Use Status Never used Tobacco 09/28/24 15:17 e-Cigarette/Vaping Use Never Used 09/28/24 15:17 PHQ-9: PHQ-9 Score PHQ-9: Total score 2 10/01/24 16:42 Depression Screening Interpretation: Negative Thrive Assessment: Date of Thrive Assessment Date Thrive assessed 09/25/24 09/28/24 15:17 Currently or been in a relationship where the following occur: No concerns reported Const General: comfortable, no acute distress, alert and awake Nutritional Appearance: overweight Orientation/consciousness: patient oriented x3 Neck Neck: Yes full ROM, Yes no lymphadenopathy and Yes supple Resp Auscultation: clear to auscultation bilaterally Cardio Rate: regular rate Rhythm: regular rhythm Heart sounds: S1 normal heart sound present and S2 normal heart sound present Neuro General: patient oriented x3 Extrem Other: Full range of motion of right elbow joint, no gross bone deformity or joint swelling seen, no tenderness on palpation Coding Level of Care Code Est Pt Level 4 (27778) Diagnoses Chronic pain of right elbow M25.521; G89.29 Additional Codes KLEVER-7 Assessment Billing - KLEVER-7 Assessment Tool: KLEVER-7 Assessment 85942 ([id number]) PHQ-9 - 89426 - PHQ-9 Billing: Yes ([id number]) Assessment & Plan Assessment & Plan (1) Chronic pain of right elbow: Code(s): M25.521 - Pain in right elbow; G89.29 - Other chronic pain Category: Medical Plan: An x-ray of the right elbow ordered The patient will be referred to orthopedics for further evaluation and management of the elbow pain. Meloxicam, an anti- inflammatory medication, will be prescribed to manage pain and inflammation until the orthopedic consultation. The patient is advised to take the medication with food and to follow up if there is no improvement. A follow-up appointment for a complete physical examination will be scheduled. Blood work will be ordered prior to the physical examination to ensure comprehensive evaluation. Patient was informed and verbally consented to the use of an ambient scribe for clinic note documentation during this visit. Orders: Orders XR elbow RT min 3V 09/28/24 G89.29 - Other chronic pain, M25.521 - Pain in right elbow Referrals Orthopedics Referral G89.29 - Other chronic pain, M25.521 - Pain in right elbow Medications: New meloxicam 15 mg PO DAILY PRN 30 tabs 0RF Joint pain
[2024-09-28 15:23] VITALS: BP 120/74; PULSE 75; RESP 15; TEMP 36.9; O2SAT 98; BMI 26.6
== END 2024-09-28 15:38 | disposition home or self-care (01) ==
LOC: HO.HMCC 15:00
PROVIDERS: PCP Internal Medicine; Visit Provider Internal Medicine
DX: M25.521 Pain in right elbow (principal); G89.29 Other chronic pain

== ENCOUNTER → 2024-09-28 15:42 | Outpatient (BNV) | payer OTHER, SELFPAY | PROVIDERS: PCP Internal Medicine; Visit Provider Radiology Diagnostic Radiology | DX: M25.521 Pain in right elbow (principal) | CPT/HCPCS: 73080 ==